=== PATIENT | female | born 1990 | race Asian ===

== ENCOUNTER 2017-05-07 00:13 | Emergency (ER) | payer SELFPAY ==
[2017-05-07 01:38] LABS: AMPHETAMINE QUAL UR NONE DETECTED (NEG <=1000)
[2017-05-07 02:28] VITALS: BP 132/79
== END 2017-05-07 02:28 | disposition home or self-care (01) ==
LOC: ED 00:13
PROVIDERS: Emergency Medicine
DX: T40.7X5A Adverse effect of cannabis (derivatives), initial encounter (principal); R00.2 Palpitations; Y92.89 Other specified places as the place of occurrence of the external cause
CPT/HCPCS: Q0092